=== PATIENT | female | born 1975 | race Caucasian/White ===

== ENCOUNTER 2024-02-27 15:30 | Emergency (ER) | payer SELFPAY ==
[2024-02-27 15:36] VITALS: BP 174/121
[2024-02-27 16:00] LABS: % Eosinophils 0.8 % (0-6); % Immature Granulocytes 1.3 % (0-0.5); % Monocytes 7.6 % (1.7-9.3); % Neutrophils 52.3 % (42.2-75.2); Absolute Basophils 0.1 10^3/uL (0-0.2); Absolute Eosinophils 0.1 10^3/uL (0-0.7); Absolute Immature Granulocytes 0.1 10^3/uL (0-0.05); Absolute Lymphocytes 3.8 10^3/uL (1.2-3.4); Absolute Monocytes 0.8 10^3/uL (0.1-0.6); Absolute Neutrophils 5.4 10^3/uL (1.4-6.5); Hematocrit 40.4 % (37.0-47.0); Hemoglobin 13.9 g/dL (12.0-16.0); Mean Corp Hgb Conc. 34.4 g/dL (33.0-37.0); Mean Corpuscular Hgb 29.2 pg (27.0-31.0); Mean Corpuscular Volume 84.9 fL (81.0-99.0); Mean Platelet Volume 9.6 fL (7.4-10.4); Nucleated Red Blood Cells % 0 %; Platelet Count 334 10^3/uL (130-400); Red Blood Cell Count 4.76 10^6/uL (4.20-5.40); Red Cell Dist. Width 13.2 % (11.5-14.5); White Blood Cell Count 10.3 10^3/uL (4.8-10.8)
[2024-02-27 16:08] LABS: ALT (SGPT) 19 U/L (0-35); AST (SGOT) 22 U/L (14-36); Albumin 4.4 g/dl (3.5-5.0); Alkaline Phosphatase 84 U/L (38-126); Blood Urea Nitrogen 14 mg/dl (7-17); Calcium 9.8 mg/dl (8.4-10.2); Carbon Dioxide 27 mmol/L (22-30); Chloride 105 mmol/L (98-107); Glucose 114 mg/dl (70-99); Potassium 4.4 mmol/L (3.5-5.1); Sodium 140 mmol/L (135-145); Total Bilirubin 0.5 mg/dl (0.2-1.3); Total Protein 7.2 g/dl (6.3-8.2); eGFR > 60.00
[2024-02-27 16:16] VITALS: BP 158/104
[2024-02-27 16:17] LABS: Troponin I < 0.012 ng/ml
--- NOTE | 2024-02-27 16:24 | ED.GENMED ---
History of Present Illness
General
Chief Complaint: Blood Pressure Problem
Source: patient
Time Seen by Provider: 02/27/24 16:16
History of Present Illness
History of Present Illness:
49yoF with a history of hypertension presenting for evaluation of elevated blood pressure. Patient went for a pre-employment physical 4 days ago and blood pressure was elevated at 155/105 at that time. She was not approved to start her job due to
her elevated blood pressure so she decided to go to urgent care today to try again. Her blood pressure was 160/120 there and she was advised to go to the ED for evaluation. Patient reports blurred vision intermittently over the past several weeks
which she thought was from her glasses. She denies any visual field cuts or double vision. No headache, chest pain, shortness of breath. She has a known history of hypertension and was previously maintained on losartan 25mg daily. She has not had
this medication in about 5 months due to losing her health insurance.
Phy Exam
General Physical Exam
General Presentation: well appearing and no apparent distress
General age: appears stated age
General Skin: warm and dry
General Habitus: normal
General Mental: alert
Eye Exam
Eye Exam: PERRL, EOMI, conjunctiva normal and visual nicholas normal
Cardiovascular Exam
Cardiovascular Exam: regular rate/rhythm
Pulmonary Exam
Pulmonary Exam: lungs clear, no respiratory distress, no crackles and no wheezing
[place] Coma Scale
Eye Opening: Spontaneous
Verbal Response: Oriented
Motor Response: Obeys Commands
GCS Total Score: 15
Skin Exam
Skin Exam: normal color and warm/dry
Psychiatric Exam
Psychiatric Exam: normal mood/affect
Course
Orders/Labs/Results
Orders:
Orders
02/27/24 15:39
ECG [Electrocardiogram (*1)] Urgent
Reason for Study: Hypertension, Benign
02/27/24 15:40
CT Head W/o Iv Contrast Urgent
Comment:
Reason For Exam: vision changes/HTN
EKG- Treatment ONCE
02/27/24 15:49
Complete Blood Count/With Diff Urgent
Comprehensive Metabolic Panel Urgent
Troponin I Urgent
02/27/24 16:23
Visual Acuity- Treatment ONCE
Losartan [Cozaar] 25 mg PO NOW STA
Abnormal Lab Results
02/27/24
15:49
Abs Immat Gran (auto) 0.1 H 10^3/uL
(0-0.05)
Absolute Lymphs (auto) 3.8 H 10^3/uL
(1.2-3.4)
Absolute Monos (auto) 0.8 H 10^3/uL
(0.1-0.6)
Immature Gran % 1.3 H %
(0-0.5)
Glucose 114 H mg/dl
(70-99)
02/27/24 15:49
02/27/24 15:49
Vital Signs
Initial and Last Documented VS:
Initial Vital Signs
Temp Pulse Resp BP Pulse Ox
98.3 F 100 20 174/121 98
02/27/24 15:36 02/27/24 15:36 02/27/24 15:36 02/27/24 15:36 02/27/24 15:36
Last Documented Vital Signs
Temp Pulse Resp BP Pulse Ox
98.3 F 83 22 130/96 97
02/27/24 15:36 02/27/24 19:00 02/27/24 19:00 02/27/24 19:00 02/27/24 19:00
MDM/Problems Addressed
Differential Diagnosis Includes:
49yoF here with elevated blood pressure at urgent care. Stopped taking her losartan several months ago. Has been having intermittent blurred vision x several weeks. No headache or chest pain. Blood pressure 174/121 in triage. Repeat BP on arrival to
exam room is 158/104. Exam is reassuring. EOMs intact and visual nicholas normal. Differential diagnosis includes but is not limited to: asymptomatic hypertension, hypertensive urgency, hypertensive emergency
Initial ED plan: Check cardiac labs, EKG, and CT head. Check visual acuity. Dose of losartan ordered.
*EKG
Interpreted by ED Provider?: Yes
EKG Intrepretation Date: 02/27/24
Heart Rate: 95
Rate: normal
Rhythm: sinus
[place]: normal axis
Interval: normal interval
QRS Pattern: normal QRS
Ischemia: no ischemia
*Critical Care Note
Total Time (30-74mins, 75-104mins- exclusive of procedures): Not Applicable
Update Note
Update Note:
Labs unremarkable including normal renal function. EKG shows NSR without ischemic changes and troponin WNL. CT head is negative for acute findings. Visual acuity 20/25 bilaterally. Blood pressure improved to 130/96. No signs of end organ dysfunction
noted. She is stable for discharge. Refill given for losartan. Advised f/u with PCP and ED return precautions discussed. She was discharged in stable condition.
ED Attending Note
-
Portions of this chart may have been created with voice recognition software.� Occasional wrong word or��sound alike� substitutions may have occurred due to the inherent limitations of voice recognition software.
Discharge Plan
Departure
Patient Disposition: Home (Routine Discharge)
Date of Disposition: 02/27/24
Time of Disposition: 18:45
Patient with high blood pressure during this ER visit?: Yes
Discharge Problem:
Hypertension
Instructions: High Blood Pressure (DC)
Prescriptions:
New
losartan 25 mg tablet
25 mg PO DAILY Qty: 30 0RF
Referrals:
[facility] [Provider Group]
NONE,* [Family Provider] -
Activity Restrictions/Additional Instructions:
Take losartan daily.
Please call tomorrow to schedule a follow-up with a family doctor. Return to the ER with any new or worsening symptoms.
Interventions
Interventions:
*Risk Screen - Suicide Last Done: 02/27/24 15:36
*General Assessment Last Done: 02/27/24 15:36
*Neglect/Abuse Screening Last Done: 02/27/24 15:36
ED- Fall Risk Assessment Last Done: 02/27/24 16:18
*ED COVID-19 Vaccine History Last Done: 02/27/24 16:16
*Nursing Disposition Last Done: 02/27/24 19:52
ED- Cardiac Assessment Last Done: 02/27/24 16:18
ED- Neurological Assessment Last Done: 02/27/24 16:18
ED- Pulmonary Assessment Last Done: 02/27/24 16:18
Discharge Date and Time
Discharge Date/Time: 02/27/24 19:52
Print Language: [id number]
[2024-02-27] MEDS: COZAAR 25 MG PO (16:32)
[2024-02-27 17:00] VITALS: BP 154/119
[2024-02-27 18:00] VITALS: BP 138/94
[2024-02-27 18:38] VITALS: BP 136/100
[2024-02-27 19:00] VITALS: BP 130/96
== END 2024-02-27 19:52 | disposition home or self-care (01) ==
LOC: EMR 15:30
PROVIDERS: Emergency Medicine; EMERGENCY PHYSICIAN Student in an Organized Health Care Education/Training Program
DX: I10 Essential (primary) hypertension (principal); H53.8 Other visual disturbances
CPT/HCPCS: 99284; 70450; 80053; 84484; 85025; 93005